=== PATIENT | female | born 1940 | race Caucasian/White ===

== ENCOUNTER 2020-05-19 13:05 | Emergency (ER) | payer MEDICARE, OTHER ==
[~2020-05-19] VITALS: Ht 158.8 cm; Wt 77.3 kg
[2020-05-19 13:16] VITALS: Ht 158.8 cm; Wt 77.3 kg
[2020-05-19] MEDS ORDERED: LEVOTHYROXINE88 MC1 PO (13:21)
[2020-05-19] MEDS ORDERED: COZAAR50 MG PO (13:21)
[2020-05-19] MEDS ORDERED: METOPROLOL TART50 MG PO (13:21)
[2020-05-19] MEDS ORDERED: XARELTO20 MG PO (13:22)
[2020-05-19] MEDS ORDERED: K-TAB10 MEQ PO (13:22)
[2020-05-19] MEDS ORDERED: CRESTOR5 MG PO (13:22)
[2020-05-19] MEDS ORDERED: PAROXETINE HCL10 MG PO (13:22)
[2020-05-19] MEDS ORDERED: FUROSEMIDE20 MG PO (13:22)
[2020-05-19] MEDS ORDERED: CO Q-10100 MG PO (13:23)
[2020-05-19] MEDS ORDERED: [UNRECOGNIZED DRUG - OTHER] PO (13:23)
[2020-05-19] MEDS ORDERED: CRANBERRY PO (13:24)
[2020-05-19] MEDS ORDERED: [UNRECOGNIZED DRUG - OTHER] PO (13:24)
[2020-05-19 14:16] LABS: CALC OSMOLALITY 268 mosm/kg (275-300); CALCIUM 9.2 mg/dL (8.5-10.1); CARBON DIOXIDE 27.2 mmol/L (21.0-32.0); CHLORIDE - SERUM 98 mmol/L (98-107); CREATININE - SERUM 0.8 mg/dL (0.6-1.3); GLUCOSE 106 mg/dL (74-106); POTASSIUM - SERUM 3.9 mmol/L (3.5-5.1); SODIUM 135 mmol/L (136-145); UREA NITROGEN 10 mg/dL (7-18); eGFR NON AFRICAN AMERICAN 73 mL/min (90-120)
[2020-05-19 14:20] LABS: BASOPHILS 0.3 % (0-2); EOSINOPHILS 0.7 % (0-7); HEMATOCRIT 43.6 % (36.0-48.0); IMMATURE GRANULOCYTES 0.1 % (0-5); LYMPHOCYTE ABS# 1.37 10x3/uL (1.18-3.74); LYMPHOCYTES 19.7 % (15-50); MCH 31.3 pg (26.0-34.0); MCHC 32.1 g/dL (31.0-37.0); MCV 97.5 fL (80.0-100.0); MONOCYTES 7.9 % (2-11); NEUTROPHIL ABS# 4.97 10x3/uL (1.56-6.13); NEUTROPHILS 71.3 % (40-80); PLATELET COUNT 190 10x3/uL (130-400); RBC 4.47 10x6/uL (4.00-5.40); RDW 13.1 % (11.5-14.5)
[2020-05-19 14:31] LABS: APTT 37.4 SECONDS (22.8-39.4); INR 1.3 (0.85-1.17)
[2020-05-19 14:33] LABS: ALBUMIN 4.1 g/dL (3.4-5.0); ALKALINE PHOSPHATASE 66 U/L (30-120); ALT (SGPT) 99 U/L (10-68); BILIRUBIN - TOTAL 0.65 mg/dL (0.2-1.3); CKMB 2.3 U/L (0.0-3.6); CREATINE KINASE 217 UL (21-215); MAGNESIUM - SERUM 2.1 mg/dL (1.8-2.4); PROTEIN - SERUM 7.6 g/dL (6.4-8.2)
[2020-05-19 14:43] LABS: TROPONIN-I < 0.017 ng/mL (0.000-0.060)
[2020-05-19] MEDS ORDERED: CARDIZEM LA120 M1 PO (17:45)
[2020-05-19 18:04] VITALS: BP 178/92
== END 2020-05-19 19:25 | disposition home or self-care (01) ==
LOC: D.ER 13:05
PROVIDERS: Emergency Medicine
DX: I48.91 Unspecified atrial fibrillation (principal); I10 Essential (primary) hypertension; K21.9 Gastro-esophageal reflux disease without esophagitis